=== PATIENT | female | born 1955 | race Caucasian/White ===

== ENCOUNTER 2020-10-27 09:03 | Outpatient (CLI) | payer BC ==
--- NOTE | 2020-10-27 10:12 | CT Report ---
PROCEDURE: HEAD WO INDICATIONS: HEADACHES TECHNIQUE: Noncontrast 4.5 mm thick angled axial sections acquired from the foramen magnum to the vertex. For r adiation dose reduction, the following was used: automated exposure control, adjustment of mA and/or kV according to patient size. COMPARISON: None. FINDINGS: Image quality: Excellent. CSF spaces: Basal cisterns are patent. No extra-axial fluid collections. Ventricles are normal in size and shape. Brain: No midline shift. No intracranial masses or hemorrhage. Herring-white matter interface is norm al. Skull and face: Calvarium and visualized facial bones are intact, without suspicious lesions. Sinuses: Visualized sinuses and mastoids are clear. IMPRESSION: Unremarkable head CT. No evidence acute stroke, hemorrhage, or mass. Reviewed by: Clay Cheng MD on 10/27/2020 10:11 AM PST Approved by: Clay Cheng MD on 10/27/2020 10:11 AM PST Station ID: [id number]
== END 2020-10-27 09:04 | disposition home or self-care (01) ==
LOC: DI 09:03
PROVIDERS: ATTEND Internal Medicine
DX: R51.9 Headache, unspecified (principal)
CPT/HCPCS: 70450

== ENCOUNTER 2021-06-01 15:12 | Outpatient (CLI) | payer BC ==
--- NOTE | 2021-06-01 16:50 | XRAY Report ---
PROCEDURE: Orbits Complete INDICATIONS: FACIAL TRAUMA TECHNIQUE: 4 views of the orbits. COMPARISON: None FINDINGS: Bones: No fractures; orbital rims appear intact throughout. No suspicious bony lesions. Visualized sinuses appear clear. Soft tissues: No suspicious soft tissue calcifications or densities. IMPRESSION: No plain radiographic evidence of facial fracture. Orbital maxillofacial CT scan is recommended if th ere is continued clinical concern for fracture. Radiographs are of highly limited sensitivity. Reviewed by: Alirio Corral MD on 06/01/2021 4:49 PM PDT Approved by: Alirio Corral MD on 06/01/2021 4:49 PM PDT Station ID: [id number]
== END 2021-06-01 15:13 | disposition home or self-care (01) ==
LOC: DI 15:12
PROVIDERS: ATTEND Internal Medicine
DX: S09.93XA Unspecified injury of face, initial encounter (principal)

== ENCOUNTER 2022-05-08 08:52 | Outpatient (CLI) | payer BC ==
--- NOTE | 2022-05-09 07:57 | Mammography Report ---
BILATERAL DIGITAL SCREENING MAMMOGRAM 3D/2D WITH AUGMENTATION: 05/08/2022 CLINICAL: Baseline exam Routine screening. No prior exams were available for comparison. There are scattered fibroglandular elements in both br easts. No significant masses, calcifications, or other findings are seen in either breast. IMPRESSION: NEGATIVE There is no mammographic evidence of malignancy. A 1 year screening mammogram is recommended. This exam was interpreted at Station ID: [id number]. NOTE: For mammograms, a report in lay terms will be sent to the patient. Approximately 15% of breast malignancies will not be visualized mammographically. In the management of a palpable breast mass, a negative mammogram must not discourage biopsy of a clinically suspicious lesion. Electronically Signed By: Alirio Corral M.D., jr/junie:05/08/2022 12:00:17 ACR BI-RADS Category 1: Negative 3341F PARENCHYMAL PATTERN: (A) - The breast(s) demonstrate(s) scattered fibroglandular densities. BI-RADS CATEGORY: (1) - 1 RECOMMENDATION: (ANNUAL) - Recommend routine annual screening mammography. [id number] 1 year screening LATERALITY: (B)
== END 2022-05-08 08:53 | disposition home or self-care (01) ==
LOC: DI.N 08:52
PROVIDERS: ATTEND Internal Medicine
DX: Z12.31 Encounter for screening mammogram for malignant neoplasm of breast (principal)

== ENCOUNTER 2022-06-26 08:09 | Day surgery (SDC) | payer BC ==
[2022-06-26] MEDS ORDERED: LACTATED RINGERS 1,000 ML IV ONE ×2 (08:20→11:21)
[2022-06-26] MEDS ORDERED: PROPOFOL 500 MG/50 ML 500 MG/50 ML VIAL ONE (09:01)
[2022-06-26] MEDS ORDERED: LIDOCAINE-MPF 2% 5 ML VIAL ONE (09:01)
--- NOTE | 2022-06-26 10:02 | ANESTHESIA ---
Pre-Anesthesia VS, & Labs - Diagnosis screening, reflux - Procedure egd, colonoscopy Vital Signs: Temp Pulse Resp BP Pulse Ox 36.2 C L 77 15 145/88 H 100 06/26/22 08:28 06/26/22 08:28 06/26/22 08:28 06/26/22 08:28 06/26/22 08:28 Height: 5 ft 10 in Weight (kg): 67.2 kg Body Mass Index: 21.2 BMI Classification: Healthy weight - NPO >8 hours - Is Patient ?: No Home Medications and Allergies Home Medications: Ambulatory Orders Alprazolam [Xanax] 0.5 mg PO DAILY PRN 06/26/22 Meloxicam [Mobic] 15 mg PO DAILY 06/26/22 Riboflavin (Vitamin B2) [Riboflavin] 400 mg PO DAILY 06/26/22 Rizatriptan Benzoate [Rizatriptan] 1 tab SL PRN PRN 06/26/22 Venlafaxine HCl [Effexor Xr] 1 tab PO DAILY 06/26/22 Verapamil ER [Calan SA] 1 tab PO DAILY 06/26/22 Alprazolam [Xanax] 0.5 mg PO DAILY PRN 06/26/22 Meloxicam [Mobic] 15 mg PO DAILY 06/26/22 Riboflavin (Vitamin B2) [Riboflavin] 400 mg PO DAILY 06/26/22 Rizatriptan Benzoate [Rizatriptan] 1 tab SL PRN PRN 06/26/22 Venlafaxine HCl [Effexor Xr] 1 tab PO DAILY 06/26/22 Verapamil ER [Calan SA] 1 tab PO DAILY 06/26/22 Allergies/Adverse Reactions: Allergies Allergy/AdvReac Type Severity Reaction Status Date / Time No Known Drug Allergies Allergy Verified 06/26/22 08:39 Anes History & Medical History - Anesthetic History Anesthesia Complications: reports: No previous complications Family history of Anesthesia Complications: Denies Family history of Malignant Hyperthermia: Denies - Medical History Cardiovascular: reports: Other (SVT) Pulmonary: reports: None Gastrointestinal: reports: GERD Urinary: reports: None Neuro: reports: Migraines Musculoskeletal: reports: Other (arthritis) Endocrine/Autoimmune: reports: None Blood Disorders: reports: None Skin: reports: None Smoking Status: Never smoker Psychosocial: reports: Depression, Anxiety, Cannabis History of Cancer?: No - Surgical History Gynecologic: reports: Breast implants Orthopedic: reports: Other (carpal tunnel, trigger finger release) Exam General: Alert, Oriented x3, Cooperative, No acute distress Dental: WNL Mouth Openin Fingerbreadth Mallampati classification: III Thyromental Distance: less than 4 cm Respiratory: Lungs clear Cardiovascular: Regular rate, Normal S1, Normal S2, No murmurs Mental/Cognitive Status: Alert/Oriented X3 Cognitive Status: Within normal limits Plan Anesthesia Type: General, Total IV Consent for Procedure(s) Verified and Reviewed: Yes Code Status: Attempt Resuscitation ASA classification: 2-Mild systemic disease Is this case an emergency?: No
[2022-06-26] MEDS ORDERED: ONDANSETRON 4 MG/2 ML VIAL ONE (10:20)
[2022-06-26] MEDS ORDERED: MIDAZOLAM 2 MG/2 ML VIAL ONE (10:20)
[2022-06-26] MEDS ORDERED: BENZOCAINE/TETRACAINE/BUTAMBEN 20 GM ONE (10:24)
[2022-06-26] MEDS ORDERED: PROPOFOL 200 MG/20 ML VIAL IVP ONE (11:08)
[2022-06-26 11:40] VITALS: BP 138/86
--- NOTE | 2022-06-26 14:57 | ANESTHESIA POST OP EVALUATION ---
Anesthesia Post Eval - Post Anesthesia Eval Vitals: Last Vital Signs Temp 36.9 C 06/26/22 11:38 Pulse 73 06/26/22 11:38 Resp 16 06/26/22 11:38 BP 138/86 H 06/26/22 11:38 Pulse Ox 99 06/26/22 11:38 CV Function Including HR & BP: Stable Pain Control: Satisfactory Nausea & Vomiting: Negative Mental Status: Baseline Respiratory Status: Airway Patent Hydration Status: Satisfactory Anesthesia Complications: None
== END 2022-06-26 08:10 | disposition home or self-care (01) ==
LOC: SDS 08:09
PROVIDERS: ATTEND Surgery
PROC: 0DB98ZX Excision of Duodenum, Via Natural or Artificial Opening Endoscopic, Diagnostic (ICD-10-PCS; principal; 2022-06-26 09:15)
DX: Z12.11 Encounter for screening for malignant neoplasm of colon (principal); K64.8 Other hemorrhoids; K57.30 Diverticulosis of large intestine without perforation or abscess without bleeding; K21.9 Gastro-esophageal reflux disease without esophagitis; K20.90 Esophagitis, unspecified without bleeding
CPT/HCPCS: 43239; 45378; A9270; J7120

== ENCOUNTER 2024-07-09 14:23 | Outpatient (CLI) | payer MEDICARE ==
--- NOTE | 2024-07-12 08:27 | Mammography Report ---
BILATERAL DIGITAL SCREENING MAMMOGRAM 3D/2D WITH AUGMENTATION: 07/09/2024 CLINICAL: Routine screening. Comparison is made to exam dated: 05/08/2022 mammogram - [facility]. There are scattered areas of fibroglandular density in both breasts (category b / 25%-50% glandular t issue). Bilateral breast implants are intact. No significant masses, calcifications, or other findings are seen in either breast. There has been no significant interval change. IMPRESSION: NEGATIVE There is no mammographic evidence of malignancy. A 1 year screening mammogram is recommended. Based on the Tyrer Cuzick model (a risk assessment model) the patient's lifetime risk is 5.3% and her 10 year risk is 2.8%. According to the ACR, ACS, and NCCN guidelines, an annual breast MRI exam marian g with mammogram is recommended if the patient's lifetime risk is 20% or greater. This exam was interpreted at Station ID: [id number]. NOTE: For mammograms, a report in lay terms will be sent to the patient. Approximately 15% of breast malignancies will not be visualized mammographically. In the management of a palpable breast mass, a negative mammogram must not discourage biopsy of a clinically suspicious lesion. Electronically Signed By: Collins liao/junie:07/09/2024 16:39:07 letter sent: No_Letter ACR BI-RADS Category 1: Negative 3341F PARENCHYMAL PATTERN: (A) - The breast(s) demonstrate(s) scattered fibroglandular densities. BI-RADS CATEGORY: (1) - 1 RECOMMENDATION: (ANNUAL) - Recommend routine annual screening mammography. [id number] 1 year screening LATERALITY: (B)
== END 2024-07-09 14:24 | disposition home or self-care (01) ==
LOC: DI 14:23
PROVIDERS: ATTEND Internal Medicine
DX: Z12.31 Encounter for screening mammogram for malignant neoplasm of breast (principal)